=== PATIENT | male | born 1950 | race Caucasian/White ===

== ENCOUNTER 2018-03-13 18:58 | Emergency (ER) | payer BC ==
[~2018-03-13] VITALS: Ht 170.2 cm; Wt 73.1 kg
[~2018-03-13 18:58] MED LIST: ASPIRIN325 M1 PO; AVELOX400 MG PO; AZILECT1 MG PO; CARTIA XT180 MG PO; DILT-CD180 MG PO; Ecotrin PO; LIPITOR80 MG PO; MIRAPEX0.25 MG PO; NITROGLYCERIN0.4 MG SL; NUVIGIL150 MG PO; OXYCODONE5 MG PO; PROVIGIL100 MG PO; STALEVO 125 TA1 EACH PO; STALEVO PO; Tylenol Regular Stre PO; Zocor PO
[2018-03-13 19:07] VITALS: BP 152/87
[2018-03-13 20:04] LABS: HEMATOCRIT 46.5 % (38.0-50.0); HEMOGLOBIN 16.1 G/DL (12.5-16.6); MCHC 34.6 G/DL (30.0-36.0); MCV 89.6 FL (86-99); PLATELET COUNT 159 K/uL (156-360); RBC DIS.WIDTH-CV 13.9 % (11.8-14.6); RED BLOOD COUNT 5.19 M/uL (4.00-5.50)
[2018-03-13 20:17] LABS: CHLORIDE 109 mEq/L (99-109); POTASSIUM 4.2 mEq/L (3.7-5.4); SODIUM 142 mEq/L (136-147)
[2018-03-13 20:18] LABS: GLUCOSE 112 mg/dL (70-99)
[2018-03-13 20:22] LABS: CREATININE 1.1 mg/dL (0.6-1.3); GFR ESTIMATE (CALCULATED) > 59 mL/min/ (58.99-99999); TROP-I INTERPRETATION NEGATIVE; TROPONIN-I < 0.01 ng/mL (0.0-0.30)
[2018-03-13 20:23] LABS: UREA NITROGEN (BUN) 17 mg/dL (9-23)
== END 2018-03-13 23:49 | disposition left against medical advice (07) ==
LOC: EME 18:58
DX: R07.9 Chest pain, unspecified (principal); Z53.21 Procedure and treatment not carried out due to patient leaving prior to being seen by health care provider
CPT/HCPCS: 71046; 80048; 84484; 85027; 93005